=== PATIENT | female | born 1990 | race African-American/Black ===

== ENCOUNTER → 2018-02-20 05:59 | Day surgery (SDC) | payer OTHER ==
[~2018-02-20 05:59] MED LIST: Acetaminophen TAB* 325 MG PO PRN; Buffered Lidocaine 0.9% SYRIN* 5 ML/SYR SYRINGE INTRADERM ONE; Buffered Lidocaine 0.9% SYRIN* 5 ML/SYR SYRINGE ONE; Bupivacaine 0.25% SDV* 30 ML ONE; Dexamethasone IV* 4 MG/ML 1 ML (4 MG) ONE; Dexmedetomidine* 200 MCG/2 ML 2 ML VIAL ONE; DiMENhydriNATE IV* 50 MG/ML VIAL IV PUSH PRN; DiMENhydriNATE IV* 50 MG/ML VIAL ONE; Famotidine IV* 10 MG/ML 2 ML (20 mg) ONE; HYDROcodone/ACETAMIN 5-325 MG* 1 TAB ONE; HYDROmorphone INJ* 1 MG/ML CARPUJECT SYRINGE IV PRN; Lidocain 1% EPI 1:100,000 * 30 ML MDV ONE; Midazolam* 1 MG/ML 5 ML VIAL (5 MG) ONE; Nalbuphine* 20 MG/ML 1 ML VIAL IV PRN; Naloxone* 0.4 MG/ML 1 ML VIAL IV PRN; Ondansetron INJ* 2 MG/ML VIAL IV PRN; Ondansetron INJ* 2 MG/ML VIAL ONE; PROCHLORPERAZINE INJ 5 MG/ML 2 ML VIAL IV PRN; Propofol* 10 MG/ML 20 ML BTL IV PUSH ONE; Rocuronium* 10 MG/ML VIAL ONE; Scopolamine 1.5 mg* PATCH ONE; Scopolamine PATCH Remove* 1 NOTE MISC PATCH OFF ONE; ceFAZolin 2 GM PREMIX (*) 2 GM/50 ML BAG IVPB ONE; fentaNYL* 50 MCG/ML 2 ML VIAL (100 MCG VIAL) IV PRN; fentaNYL* 50 MCG/ML 2 ML VIAL (100 MCG VIAL) ONE
[2018-02-20 13:17] VITALS: BP 99/71
== END | disposition home or self-care (01) ==
LOC: OR 05:59
PROVIDERS: ATTEND Plastic Surgery
DX: N62 Hypertrophy of breast (principal); M54.5 Low back pain; M54.2 Cervicalgia; M25.512 Pain in left shoulder; M25.511 Pain in right shoulder; Z87.891 Personal history of nicotine dependence; Z68.37 Body mass index [BMI] 37.0-37.9, adult
CPT/HCPCS: 81025; A9270-GY; J0690; J1100; J1240; J2250; J2405; J2704; J3010

== ENCOUNTER 2018-05-09 12:36 | Emergency (ER) | payer OTHER ==
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
[2018-05-09 15:38] VITALS: BP 125/78
== END 2018-05-09 15:00 | disposition home or self-care (01) ==
LOC: ED 12:36
DX: M79.662 Pain in left lower leg (principal); V03.99XA Pedestrian with other conveyance injured in collision with car, pick-up truck or van, unspecified whether traffic or nontraffic accident, initial encounter; Y92.410 Unspecified street and highway as the place of occurrence of the external cause; Z87.891 Personal history of nicotine dependence
CPT/HCPCS: 72170; 99281

== ENCOUNTER 2019-12-03 03:30 | Emergency (ER) | payer OTHER ==
--- NOTE | 2019-12-03 04:19 | ED ---
Influenza-Like Illness - HPI Summary HPI Summary: This pt is a 29 Y/O F presenting to [facility] with a CC of influenza-like symptoms that started on 11/30/2019 with fevers, diarrhea, and nausea. She states that on 12/01/2019 she started to develop coughs with chills and headaches. Finally on her symptoms increased more and she had a sore throat, ear ache, and myalgia. She states that she has no aggravating or alleviating factors. She states that her son had recently been sick with influenza A and B. She states that she has no pertinent PMHx. She states that her last period was 11/10/2019. - History of Current Complaint Chief Complaint: EDFluSymptoms Time Seen by Provider: 12/03/19 04:04 Hx Obtained From: Patient Onset/Duration: Sudden Onset, Lasting Days - 3, Still Present Severity: Moderate Associated Signs & Symptoms: Fever, Myalgia, Cough, Sore Throat, Nasal Congestion, Headache, Vomiting - Allergy/Home Medications Allergies/Adverse Reactions: Allergies Allergy/AdvReac Type Severity Reaction Status Date / Time Bananas Allergy Mild Hives Uncoded 12/03/19 03:33 Home Medications: Home Medications Ibuprofen TAB* [Motrin TAB* 600 MG] 600 mg PO Q6H PRN #30 tab 08/02/18 [Rx Confirmed 12/03/19] PMH/Surg Hx/FS Hx/Imm Hx Previously Healthy: Yes Endocrine/Hematology History: Reports: Hx Anemia Cardiovascular History: Denies: Hx Hypertension Sensory History: Reports: Hx Contacts or Glasses Denies: Hx Hearing Aid Opthamlomology History: Reports: Hx Contacts or Glasses Psychiatric History: Reports: Hx Anxiety - Cancer History Hx Chemotherapy: No Hx Radiation Therapy: No - Surgical History Surgical History: Yes Surgery Procedure, Year, and Place: D&C Hx Anesthesia Reactions: No - Immunization History Immunizations Up to Date: Yes Infectious Disease History: No Infectious Disease History: Denies: Traveled Outside the [place] in Last 30 Days - Family History Known Family History: Positive: Hypertension, Diabetes - Social History Occupation: Student - [employer] Lives: With Family Alcohol Use: None Hx Substance Use: No Substance Use Type: Reports: None Hx Tobacco Use: Yes Smoking Status (MU): Former Smoker Amount Used/How Often: social smoker very occassional Review of Systems Positive: Fever, Chills Positive: Sore Throat, Ear Ache Positive: Cough Positive: Vomiting, Nausea Positive: Myalgia Positive: Headache All Other Systems Reviewed And Are Negative: Yes Physical Exam - Summary Physical Exam Summary: Constitutional: Well-developed, Well-nourished, Alert. (-) Distressed Skin: Warm, Dry HENT: Normocephalic; Atraumatic Eyes: Conjunctiva normal Neck: Musculoskeletal ROM normal neck. (-) JVD, (-) Stridor, (-) Tracheal deviation Cardio: Rhythm regular, rate slightly tachycardic, Heart sounds normal; Intact distal pulses; The pedal pulses are 2+ and symmetric. Radial pulses are 2+ and symmetric. Pulmonary/Chest wall: Effort normal. (-) Respiratory distress, (-) Wheezes, (-) Rales Abd: Soft, (-) tenderness, (-) Distension, (-) Guarding, (-) Rebound Musculoskeletal: (-) Edema Neuro: Alert, Oriented x3 Psych: Mood and affect Normal Triage Information Reviewed: Yes Vital Signs On Initial Exam: Initial Vitals Temp Pulse Resp BP Pulse Ox 99.2 F 108 15 131/93 99 12/03/19 03:32 12/03/19 03:32 12/03/19 03:32 12/03/19 03:32 12/03/19 03:32 Vital Signs Reviewed: Yes Procedures - Sedation Patient Received Moderate/Deep Sedation with Procedure: No Diagnostics - Vital Signs Vital Signs Temp Pulse Resp BP Pulse Ox 12/03/19 04:12 108 133/79 97 12/03/19 04:11 108 97 12/03/19 03:32 99.2 F 108 15 131/93 99 - Laboratory Lab Statement: Any lab studies that have been ordered have been reviewed, and results considered in the medical decision making process. Flu Symptom Course/Dx - Course Course Of Treatment: This pt is a 29 Y/O F presenting to [facility] with a CC of influenza-like symptoms that started on 11/30/2019 with fevers, diarrhea, and nausea. She states that on 12/01/2019 she started to develop coughs with chills and headaches. Finally on 12/02/2019 her symptoms increased more and she had a sore throat, ear ache, and myalgia. Her PE found that she was tachycardic without any other abnormalities. She stated that she was feeling much better after receiving pepcid, toradol, zofran, and fluids. She will be discharged home with a Dx of viral syndrome. - Diagnoses Provider Diagnoses: Viral syndrome Discharge ED - Sign-Out/Discharge Documenting (check all that apply): Patient Departure - discharge - Discharge Plan Condition: Good Disposition: HOME Patient Education Materials: Viral Syndrome (ED) Forms: *School Release Referrals: Nenita Cheng MD [Primary Care Provider] - 2 Days Additional Instructions: PLEASE FOLLOW UP WITH YOUR PRIMARY CARE PROVIDER IN THE NEXT 1-3 DAYS AND RETURN TO THE EMERGENCY DEPARTMENT FOR ANY NEW OR WORSENING SYMPTOMS. - Billing Disposition and Condition Condition: GOOD Disposition: Home - Attestation Statements Document Initiated by Aliza: Yes Documenting Scribe: Burke Batista Provider For Whom Aliza is Documenting (Include Credential): Brodie Marx MD Scribe Attestation: Burke Pete, scribed for Brodie Marx MD on 12/03/19 at 0601. Scribe Documentation Reviewed: Yes Provider Attestation: The documentation as recorded by the Burke carvajal accurately reflects the service I personally performed and the decisions made by , Brodie Marx MD Status of Scribe Document: Viewed
[2019-12-03] MEDS ORDERED: Ketorolac INJ* 30 MG/ML 1 ML VIAL IV PUSH ONE (04:20)
[2019-12-03] MEDS ORDERED: Famotidine IV* 10 MG/ML 2 ML (20 mg) IV SLOW PU ONE (04:20)
[2019-12-03] MEDS ORDERED: Ondansetron INJ* 2 MG/ML VIAL IV ONE (04:20)
[2019-12-03] MEDS ORDERED: Lactated Ringers 1000 ML Bag* 1,000 ML IV ONE ×2 (04:20)
[2019-12-03 05:46] VITALS: BP 130/85
== END 2019-12-03 05:46 | disposition home or self-care (01) ==
LOC: ED 03:30
DX: B34.9 Viral infection, unspecified (principal); Z91.018 Allergy to other foods; Z87.891 Personal history of nicotine dependence
CPT/HCPCS: 96361; 96374; 96375; 99282; J1885; J2405

== ENCOUNTER 2022-03-09 05:36 | Inpatient (IN) ==
[~2022-03-09 05:36] MED LIST changes: -Acetaminophen TAB* 325 MG PO PRN; -Buffered Lidocaine 0.9% SYRIN* 5 ML/SYR SYRINGE INTRADERM ONE; -Buffered Lidocaine 0.9% SYRIN* 5 ML/SYR SYRINGE ONE; +Buffered Lidocaine 1% SYRIN 1 ml INTRADERM ONE; -Bupivacaine 0.25% SDV* 30 ML ONE; -Dexamethasone IV* 4 MG/ML 1 ML (4 MG) ONE; -Dexmedetomidine* 200 MCG/2 ML 2 ML VIAL ONE; -DiMENhydriNATE IV* 50 MG/ML VIAL IV PUSH PRN; -DiMENhydriNATE IV* 50 MG/ML VIAL ONE; -Famotidine IV* 10 MG/ML 2 ML (20 mg) ONE; -HYDROcodone/ACETAMIN 5-325 MG* 1 TAB ONE; +HYDROcodone/ACETAMIN 5/325 mg TAB PO PRN; -HYDROmorphone INJ* 1 MG/ML CARPUJECT SYRINGE IV PRN; +Lactated Ringers 1000 ml BAG 1,000 ML IV SCH; -Lidocain 1% EPI 1:100,000 * 30 ML MDV ONE; +Metoclopramide 5 MG/ML VIAL (10 mg) IV PRN; -Midazolam* 1 MG/ML 5 ML VIAL (5 MG) ONE; -Nalbuphine* 20 MG/ML 1 ML VIAL IV PRN; +Naloxone 0.4 mg VIAL 0.4 mg/ml 1 ml VIAL IV PRN; -Naloxone* 0.4 MG/ML 1 ML VIAL IV PRN; +Ondansetron 4 mg VIAL 2 MG/ML 2 ml VIAL IV PRN; -Ondansetron INJ* 2 MG/ML VIAL IV PRN; -Ondansetron INJ* 2 MG/ML VIAL ONE; -PROCHLORPERAZINE INJ 5 MG/ML 2 ML VIAL IV PRN; -Propofol* 10 MG/ML 20 ML BTL IV PUSH ONE; -Rocuronium* 10 MG/ML VIAL ONE; +Scopolamine 1 mg/72hr PATCH TRANSDERM ONE; -Scopolamine 1.5 mg* PATCH ONE; -Scopolamine PATCH Remove* 1 NOTE MISC PATCH OFF ONE; -ceFAZolin 2 GM PREMIX (*) 2 GM/50 ML BAG IVPB ONE; +fentaNYL 100 mcg/2 ml 50 MCG/ML VIAL IV PRN; -fentaNYL* 50 MCG/ML 2 ML VIAL (100 MCG VIAL) IV PRN; -fentaNYL* 50 MCG/ML 2 ML VIAL (100 MCG VIAL) ONE
[2022-03-09] MEDS ORDERED: Scopolamine 1 mg/72hr PATCH ONE (06:08)
[2022-03-09] MEDS ORDERED: ceFAZolin 1 GM in Dextrose 1 GM/50 ML BAG ONE (06:09)
[2022-03-09] MEDS ORDERED: ceFAZolin 2 GM PREMIX 2 GM/50 ML BAG ONE (06:09)
[2022-03-09] MEDS ORDERED: Heparin 5000 UNITS/ML 1 mL VIAL ONE (06:09)
[2022-03-09] MEDS ORDERED: Propofol 10 MG/ML 20 ML BTL ONE (06:45)
[2022-03-09] MEDS ORDERED: Midazolam 2 mg/2 ml VIAL 1 mg/ml 2 ml VIAL (2 mg) ONE (06:51)
[2022-03-09] MEDS ORDERED: fentaNYL 250 mcg/5 ml 50 MCG/ML 5 ml VIAL (250 MCG) ONE (06:51)
[2022-03-09] MEDS ORDERED: Rocuronium 50 mg VIAL 10 mg/ml 5 ml VIAL (50 mg) ONE ×2 (06:51→09:37)
[2022-03-09] MEDS ORDERED: Lidocaine 1% MPF 2 ML VIAL ONE (06:53)
[2022-03-09] MEDS ORDERED: Methylene Blue 0.5 % 50 MG/10 ML AMP IV ONE (06:53)
[2022-03-09] MEDS ORDERED: Bupivacaine 0.25% w/EPI 10 ML SDV ONE (06:54)
[2022-03-09] MEDS ORDERED: Dexamethasone IV 4 MG/ML VIAL 1 ml VIAL ONE (08:14)
[2022-03-09] MEDS ORDERED: Ondansetron 4 mg VIAL 2 MG/ML 2 ml VIAL ONE ×3 (08:14→10:33)
[2022-03-09] MEDS ORDERED: HYDROcodone/ACET. 7.5/325 LIQ 15 ML UDC PO PRN (10:27)
[2022-03-09] MEDS ORDERED: Metoclopramide 5 MG/ML VIAL (10 mg) ONE (10:32)
[2022-03-09] MEDS ORDERED: HYDROmorphone 1 MG/1 ML SYRINGE ONE (10:32)
[2022-03-09] MEDS: HYDROmorphone 1 MG/1 ML SYRINGE IV PRN ×5 (10:35→11:58)
[2022-03-09] MEDS: Lactated Ringers 1000 ml BAG 1,000 ML IV SCH ×2 (12:43→19:42)
[2022-03-09] MEDS: HYDROmorphone 0.5 MG/0.5 ML SYRINGE IV SLOW PU PRN ×2 (17:30→23:29)
[2022-03-09] MEDS: Ondansetron 4 mg VIAL 2 MG/ML 2 ml VIAL IV PRN ×2 (17:30→23:29)
[2022-03-09] MEDS: Heparin 5000 UNITS/ML 1 mL VIAL SUBCUT SCH (21:45)
[2022-03-10] MEDS: Lactated Ringers 1000 ml BAG 1,000 ML IV SCH ×2 (02:41→09:35)
[2022-03-10] MEDS: Heparin 5000 UNITS/ML 1 mL VIAL SUBCUT SCH ×2 (06:41→14:35)
[2022-03-10 11:29] VITALS: BP 141/93
[2022-03-10] MEDS ORDERED: D5W 1/2 NS KCl 20 meq 1000 ml 1,000 ML IV SCH (12:30)
== END 2022-03-10 18:00 | disposition home or self-care (01) | DRG 403 ==
LOC: AA 05:36 → SSU 12:22
PROVIDERS: ADMIT Surgery; ATTEND Surgery